=== PATIENT | female | born 1950 | race Caucasian/White ===

== ENCOUNTER → 2020-10-29 10:23 | Outpatient (CLI) | payer MEDICARE, SELFPAY ==
--- NOTE | ~2020-10-29 | DEXA_ITS ---
Bone Density Report Name: Hannah Pérez Age: 70 Sex: Female Ethnicity: White Date of : 1950 Indication: postmenopausal; screening for osteoporosis; height loss; prior fracture; asthma or emphysema; Referring Provider: Estee Phelps Study: Bone densitometry was performed. Exam Date: October 29, 2020 Accession number: [id number] Bone Density: Region BMD T-score Z-score Classification AP Spine (L1-L4) 1.005 -0.4 1.6 Normal Femoral Neck (Left) 0.869 0.2 1.9 Normal Total Hip (Left) 0.961 0.2 1.6 Normal Femoral Neck (Right) 0.863 0.1 1.8 Normal Total Hip (Right) 0.933 -0.1 1.4 Normal Total Hip Mean 0.947 0.1 1.5 Normal World Health Organization criteria for BMD impression classify patients as: Normal (T-score at or above -1.0), Osteopenia (T-score between -1.0 and -2.5), or Osteoporosis (T-score at or below -2.5). 10-year Fracture Risk: FRAX not reported because: All T-scores for Spine Total, Hip Total, Femoral Neck at or above -1.0 Clinical Information Provided by Patient: Has had a low trauma fracture Has used the following medications: Vitamin D Has the following medical conditions: Asthma or Emphysema, stage 3 kidney disease Patient maximum height was 64.75 Menopause Age: 52 Drinks caffeinated beverages Onset of menses at age 15 Number of children 4 Impression: The patient has normal bone mass. The patient has risk factors, including: previous fracture. Discussion: BONE DENSITY IS ABOVE THE MINIMUM DESIRABLE LEVEL AT ALL SKELETAL SITES TESTED. This patient?s bone mineral density is above the minimum desirable level (T-score -1.0 or better) at all sites measured. The patient should follow a healthful lifestyle (good nutrition with adequate calcium and vitamin D, and appropriate weight-bearing exercise). Follow-Up: Consider repeating this study in 5 years or sooner if there is some new clinical indication. Reported by: ROMIAN on 10/29/2020 11:12:00 AM. Reviewed, dictated and finalized at location A. [facility]
--- NOTE | ~2020-10-29 | MM_ITS ---
EXAMINATION: MM screening lori BI w sanya HISTORY: Screening TECHNIQUE: Craniocaudal and mediolateral oblique 3-D tomosynthesis images were obtained and synthetic 2-D images were generated. CAD analysis was submitted and interpreted. COMPARISON: No prior mammogram is available for comparison at this institution. BREAST PARENCHYMAL COMPOSITION: There are scattered areas of fibroglandular density. FINDINGS: There are benign bilateral breast calcifications. There is no evidence of suspicious mass, calcification, or architectural distortion to suggest malignancy in either breast. There has been no suspicious interval change. IMPRESSION: 1. No mammographic evidence of malignancy. 2. Recommend routine screening mammography in one year. BI-RADS Category 2: Benign finding(s). Reviewed, dictated and finalized at location A.
== END ==
PROVIDERS: PCP Family Medicine; Visit Provider Physician Assistant
DX: Z12.31 Encounter for screening mammogram for malignant neoplasm of breast (principal); Z78.0 Asymptomatic menopausal state
CPT/HCPCS: 77063; 77067; 77080

== ENCOUNTER 2022-07-08 16:02 | Emergency (ER) | payer MEDICARE, SELFPAY ==
[2022-07-08 16:10] VITALS: BP 124/65; PULSE 86; RESP 16; TEMP 37.6; O2SAT 100
--- NOTE | 2022-07-08 16:21 | ED.SKABFB ---
HPI - Skin/Abscess/Foreign Bdy General Chief complaint: Upper Respiratory Infection Stated complaint: Earache/ Blisters on Left Side of Face Time Seen by Provider: 07/08/22 16:21 Source: patient Mode of arrival: ambulatory Limitations: no limitations History of Present Illness HPI narrative: 72-year-old female presents with rash to left side face for 4 days. States pain started to left ear had that spread. Denies pain and itching. Has been applying makeup over rash to hide it. No other complaints today. All systems reviewed and negative except as noted above. Related Data Home Medications Medication Instructions Recorded Confirmed lamotrigine 100 mg tablet 100 mg PO DAILY 07/08/22 07/08/22 paliperidone palmitate 78 mg/0.5 78 mg IM DIRECTED 07/08/22 07/08/22 mL intramuscular syringe (Invega Sustenna) risperidone 1 mg tablet 1 mg PO DAILY 07/08/22 07/08/22 Allergies Allergy/AdvReac Type Severity Reaction Status Date / Time No Known Allergies Allergy Verified 07/08/22 16:06 Review of Systems Review of Systems: CONSTITUTIONAL: Denies fever, chills, or sweats. EYES: Denies visual changes, redness, or discharge. ENT: Denies rhinorrhea, congestion, sore throat . Reports Left ear pain. CARDIOVASCULAR: Denies chest pain, palpitations, or edema. RESPIRATORY: Denies cough or dyspnea. GASTROINTESTINAL: Denies abdominal pain, nausea, vomiting, or diarrhea. GENITOURINARY: Denies dysuria or hematuria. SKIN: reports rash left-sided face. MUSCULOSKELETAL: Denies back pain, joint pain, or myalgia. NEUROLOGIC: Denies headache, numbness, or weakness. PSYCHIATRIC: Denies anxiety or depression. All other systems reviewed are negative, except as documented in HPI. [facility] Past Medical History Medical History (Updated 07/08/22 @ 16:31 by Estee Holbrook NP) CKD (chronic kidney disease) stage 3, GFR 30-59 ml/min Constipation Schizophrenia Family History Family History (Updated 06/07/18 @ 09:37 by DOCTOR UNKNOWN) Sibling Patient's sister is in good health Patient's brother is in good health Family history of malignant neoplasm Mother Family history of lung cancer, Onset Age: 78 Father Family history of lung cancer, Onset Age: 80 Social History Social History Social History: Second hand tobacco smoke exposure: No Alcohol intake: never Substance use: never Substance use type: does not use Gender identity (if verbalized by the patient): Female Comments At time of signature, agree with nursing past medical, surgical, social and family history. There is no relevant family history pertinent to the presenting complaint. Exam Narrative: GENERAL: This is a well-nourished, well-developed patient, in no apparent distress. HEAD: normocephalic, atraumatic. EYES: PERRL. Sclera clear/white. Vision is grossly intact. EARS: External ears normal, Right ear canal normal. Left ear canal is swollen, erythematous. NOSE: External nose normal with no obvious nasal discharge, nares without redness, no rhinorrhea. NECK: Neck supple, non-tender without lymphadenopathy, masses or thyromegaly. CARDIOVASCULAR: Regular rate and rhythm without murmurs, gallops, or rubs. RESPIRATORY: Clear to auscultation. Breath sounds equal bilaterally. No wheezes, rales, or rhonchi. GASTROINTESTINAL: Abdomen soft, non-tender, nondistended. Bowel sounds are active. No hepato-splenomegaly, or palpable masses. No guarding. SKIN: warm, Dry, good texture and turgor. Erythematous fascicular rash to left side of face extending from chin to ear. No eye involvement. Crusting noted to rash, but difficult to assess due to makeup caked Into vesicles. NEURO: awake, alert, and oriented to person, place and time. There were no obvious focal neurologic abnormalities. EXTREMITIES: No joint tenderness, effusion, or edema noted. Course
== END 2022-07-08 16:53 | disposition home or self-care (01) ==
PROVIDERS: Emergency Provider Nurse Practitioner Family; PCP Family Medicine
DX: B02.9 Zoster without complications (principal); H60.92 Unspecified otitis externa, left ear; N18.30 Chronic kidney disease, stage 3 unspecified
CPT/HCPCS: 99213; G0463